=== PATIENT | female | born 1940 | race Caucasian/White ===

== ENCOUNTER 2017-10-22 08:45 | Emergency (ER) | payer MEDICARE, OTHER ==
[~2017-10-22] VITALS: Ht 160 cm; Wt 64.0 kg
[~2017-10-22 08:45] MED LIST: ALBU90OI INH; ATOR40TA PO; CELE200 PO; CETI10 PO; CHOL10002 PO; DIPASPER PO; ESTR.05TPW; FLUSAL2505 IH; FLUSAL2505 INH; GLIP10 PO; GLYB5 PO; LIRA0.6P SC; LISHYD1012 PO; LOSHYD PO; METF500 PO; METO10 PO; METO25ER PO; OMEP20ER PO; Omeprazole20 M1; Plavix75 MG PO; Robaxin-750750 MG PO; ZAFI20 PO
[2017-10-22] MEDS ORDERED: HINGED KNEE SUPPORT (09:35)
== END 2017-10-22 09:51 | disposition home or self-care (01) ==
LOC: ER 08:45
DX: M25.561 Pain in right knee (principal); Z88.5 Allergy status to narcotic agent; Z88.0 Allergy status to penicillin; Z79.899 Other long term (current) drug therapy; Z79.84 Long term (current) use of oral hypoglycemic drugs; E11.9 Type 2 diabetes mellitus without complications; J45.909 Unspecified asthma, uncomplicated; Z87.891 Personal history of nicotine dependence
CPT/HCPCS: 73564; 99283

== ENCOUNTER → 2019-06-02 | Outpatient (CLI) | payer MEDICARE, OTHER ==
[~2019-06-02] MED LIST changes: +HINGED KNEE SUPPORT
[2019-06-02 14:11] LABS: Source, Urine Clean Catch
[2019-06-02 15:48] LABS: Bilirubin, Urine Neg (Neg); Blood, Urine Neg (Neg); Glucose Qualitative, Urine 3+ (Neg); Ketones, Urine Neg (Neg); Leukocyte Esterase, Urine Neg (Neg); Nitrite, Urine Neg (Neg); Protein, Urine Neg (Neg); Urobilinogen, Urine NORM (Normal)
[2019-06-02 15:53] LABS: Appearance, Urine Clear (Clear); Color, Urine Yellow (P-Yellow)
== END | disposition home or self-care (01) ==
LOC: LAB 14:09 → LAB SHORT 14:09
PROVIDERS: Family Medicine
DX: R30.0 Dysuria (principal)
CPT/HCPCS: 81003

== ENCOUNTER → 2019-11-01 | Outpatient (CLI) | payer MEDICARE, OTHER | END | disposition home or self-care (01) | LOC: LAB 10:20 → LAB SHORT 10:20 | DX: R39.15 Urgency of urination (principal) | CPT/HCPCS: 87077; 87086; 87186 ==

== ENCOUNTER 2020-06-30 10:33 | Emergency (ER) | payer MEDICARE, OTHER ==
[~2020-06-30] VITALS: Ht 154.9 cm; Wt 51.7 kg
[~2020-06-30 10:33] MED LIST changes: -CHOL10002 PO; +VITAMIN D32000 UNI1 PO
[2020-06-30] MEDS ORDERED: CARV6.25 PO (11:40)
[2020-06-30] MEDS ORDERED: DEXL60CA3 PO (11:40)
[2020-06-30] MEDS ORDERED: ELIQUIS5 MG PO (11:41)
[2020-06-30] MEDS ORDERED: LANOXIN125 MCG PO (11:41)
[2020-06-30] MEDS ORDERED: LEVSOD25 PO (11:41)
[2020-06-30] MEDS ORDERED: OMEGA-3 FISH O1 EAC6 PO (11:42)
[2020-06-30] MEDS ORDERED: ACET500 PO (11:44)
[2020-06-30] MEDS ORDERED: ROPI1 PO (11:44)
[2020-06-30] MEDS ORDERED: Depo-Medro80 MG/1 ML IJ (11:45)
== END 2020-06-30 12:42 | disposition home or self-care (01) ==
LOC: ER 10:33
DX: Z00.00 Encounter for general adult medical examination without abnormal findings (principal); R51.9 Headache, unspecified; E11.9 Type 2 diabetes mellitus without complications; Z88.5 Allergy status to narcotic agent; Z88.0 Allergy status to penicillin; Z79.01 Long term (current) use of anticoagulants; Z79.84 Long term (current) use of oral hypoglycemic drugs; Z79.899 Other long term (current) drug therapy; Z87.891 Personal history of nicotine dependence
CPT/HCPCS: 99283

== ENCOUNTER 2021-06-03 15:59 | Observation (INO) | payer MEDICARE, OTHER ==
[~2021-06-03] VITALS: Ht 157.5 cm; Wt 47.2 kg
[~2021-06-03 15:59] MED LIST changes: +ACET500 PO; +CARV6.25 PO; +DEXL60CA3 PO; +Depo-Medro80 MG/1 ML IJ; +ELIQUIS5 MG PO; +LANOXIN125 MCG PO; +LEVSOD25 PO; +OMEGA-3 FISH O1 EAC6 PO; +ROPI1 PO
[2021-06-03 16:39] LABS: BASOPHILS ABSOLUTE AUTO 0.07 K/mm3 (0.00-0.23); BASOPHILS PERCENT AUTO 1 % (0-2); EOSINOPHILS ABSOLUTE AUTO 0.07 K/mm3 (0.00-0.68); EOSINOPHILS PERCENT AUTO 1 % (0-6); Hematocrit 33.2 % (33.0-51.0); Hemoglobin 9.6 g/dL (11.5-16.0); IMMATURE GRAN ABSOLUTE AUTO 0.08 K/mm3 (0.00-0.10); IMMATURE GRAN PERCENT AUTO 1 % (0-1); LYMPHOCYTES ABSOLUTE AUTO 1.26 K/mm3 (0.84-5.20); LYMPHOCYTES PERCENT AUTO 9 % (21-46); MONOCYTES PERCENT AUTO 7 % (4-13); Mean Corpuscular HGB 22.3 pg (26.0-34.0); Mean Corpuscular HGB Conc 28.9 g/dL (31.5-36.5); Mean Corpuscular Volume 77 fL (80-100); Mean Platelet Volume 9.7 fL (9.1-12.4); NEUTROPHILS ABSOLUTE AUTO 11.93 K/mm3 (1.96-9.15); NEUTROPHILS PERCENT AUTO 83 % (41-73); Platelet Count 219 K/mm3 (150-400); RDW Coefficient Variation 17.5 % (11.7-14.2); RDW Standard Deviation 49.2 fL (35.1-46.3); White Blood Cell Count 14.41 K/mm3 (4.00-11.30)
[2021-06-03 16:59] LABS: Alanine Aminotransfer (ALT/SGP 20 U/L (12-78); Albumin, Blood 3.3 g/dL (3.4-5.0); Albumin/Globulin Ratio 0.8 (0.8-1.8); Alk Phos 71 U/L (50-136); Anion Gap 5 mmol/L (6-16); Aspartate Aminotrans (AST/SGOT 13 U/L (12-37); Bilirubin, Total 0.4 mg/dL (0.1-1.0); Blood Urea Nitrogen 14 mg/dL (8-24); Bun/Creatinine Ratio 22.9 (12.0-20.0); CO2, Blood 27 mmol/L (21-32); Calcium, Blood 9.2 mg/dL (8.5-10.1); Chloride, Blood 101 mmol/L (98-108); Creatinine, Blood 0.61 mg/dL (0.40-1.00); Globulin, Blood 3.9 g/dL (2.2-4.0); Glomerular Filtration Rate >60 (60-); Glucose, Blood 181 mg/dL (70-99); Potassium, Blood 4.2 mmol/L (3.5-5.5); Sodium, Blood 133 mmol/L (136-145); Total Protein, Blood 7.2 g/dL (6.4-8.2)
[2021-06-03 20:20] LABS: SARS-Cov-2 (COVID-19) PCR, MMC NEGATIVE (NEGATIVE)
[2021-06-04 04:09] LABS: BASOPHILS ABSOLUTE AUTO 0.04 K/mm3 (0.00-0.23); BASOPHILS PERCENT AUTO 0 % (0-2); EOSINOPHILS ABSOLUTE AUTO 0.05 K/mm3 (0.00-0.68); EOSINOPHILS PERCENT AUTO 1 % (0-6); Hemoglobin 8.7 g/dL (11.5-16.0); IMMATURE GRAN ABSOLUTE AUTO 0.04 K/mm3 (0.00-0.10); IMMATURE GRAN PERCENT AUTO 0 % (0-1); LYMPHOCYTES ABSOLUTE AUTO 1.31 K/mm3 (0.84-5.20); LYMPHOCYTES PERCENT AUTO 13 % (21-46); MONOCYTES ABSOLUTE AUTO 1.04 K/mm3 (0.16-1.47); MONOCYTES PERCENT AUTO 10 % (4-13); Mean Corpuscular Volume 76 fL (80-100); Mean Platelet Volume 9.5 fL (9.1-12.4); NEUTROPHILS ABSOLUTE AUTO 7.56 K/mm3 (1.96-9.15); NEUTROPHILS PERCENT AUTO 75 % (41-73); Platelet Count 170 K/mm3 (150-400); RDW Standard Deviation 46.6 fL (35.1-46.3); Red Blood Cell Count 3.96 M/mm3 (3.80-5.20); White Blood Cell Count 10.04 K/mm3 (4.00-11.30)
[2021-06-04 04:40] LABS: Alanine Aminotransfer (ALT/SGP 15 U/L (12-78); Albumin, Blood 2.6 g/dL (3.4-5.0); Albumin/Globulin Ratio 0.7 (0.8-1.8); Alk Phos 63 U/L (50-136); Anion Gap 5 mmol/L (6-16); Aspartate Aminotrans (AST/SGOT 8 U/L (12-37); Bilirubin, Total 0.4 mg/dL (0.1-1.0); Blood Urea Nitrogen 12 mg/dL (8-24); Bun/Creatinine Ratio 17.8 (12.0-20.0); CO2, Blood 27 mmol/L (21-32); Calcium, Blood 8.3 mg/dL (8.5-10.1); Chloride, Blood 102 mmol/L (98-108); Creatinine, Blood 0.68 mg/dL (0.40-1.00); Globulin, Blood 3.6 g/dL (2.2-4.0); Glomerular Filtration Rate >60 (60-); Glucose, Blood 141 mg/dL (70-99); Potassium, Blood 3.9 mmol/L (3.5-5.5); Sodium, Blood 134 mmol/L (136-145); Total Protein, Blood 6.2 g/dL (6.4-8.2)
--- NOTE | 2021-06-04 04:53 | NUR ---
SHIFT SUMMARY PT NEW ADMIT THIS SHIFT. [id number]. NPO THIS AM. DISCOMFORT CONTROLLED WITH X1 ROXICODONE THIS SHIFT. NAUSEA POST ROXICODONE DECREASED WITH 4MG IV ZOFRAN X1, NO EMESIS. INDEPENDENT IN ROOM. IVF PER ORDERS. PT ORIENTED TO ROOM + CALL LIGHT USE. EDUCATED REGARDING TX + QUESTIONS ANSWERED. SCDs ON. PT CURRENTLY RESTING WELL THIS AM WITH CALL LIGHT IN REACH.
--- NOTE | 2021-06-04 13:14 | NUR ---
PT TAKEN TO HIDA SCAN.
--- NOTE | 2021-06-04 15:33 | NUR ---
PT TO DAY SURGERY.
--- NOTE | 2021-06-04 16:01 | NUR ---
PT TRANSFERED TO [facility] VIA GURNY FROM FLOOR. History, Chart, Medications and Allergies reviewed before start of procedure. Lungs clear T/O to Auscultation. Patient confirms NPO status and agrees with scheduled surgery. Pre-Op teaching done. Pt verbalizes understanding.
--- NOTE | 2021-06-04 16:58 | NUR ---
PT IN SURGERY.
--- NOTE | 2021-06-04 18:58 | NUR ---
ARRIVED FROM PACU VIA GURNE, TRANSFERRED TO BED, PT IS VERY DROWSY BUT AWAKENS EASILY, ICE CHIPS GIVEN, ABD LAP INISIONS X4 C/D/I W/ STERISTRIPS, REPORT TO RUBY COREAS.
--- NOTE | 2021-06-05 05:41 | NUR ---
POD 1 S/P LAP SANJANA. PT VSS T/O NIGHT, SATS >90% ON RA. INCISIONS CDI. PAIN MGD PER EMAR W/REP RELIEF. PT DENIED N/V, PT REP NO FLATUS YET. PT UP OOB W/MIN ASSIST, DESTINY WELL.
--- NOTE | 2021-06-05 17:48 | NUR ---
PATIENT ALERT AND ORIENTED X 3. ABLE TO MAKE NEEDS AND WANTS KNOWN. CALL LIGHT AND WATER IN EASY REACH. COMPLAINS OF PAIN IN ABDOMEN, PRN PAIN MEDICATION GIVEN WHEN NEEDED PER ORDERS WITH RELIEF OF PAIN NOTED. AMBULATED TO BATHROOM WITH MINIMAL SBA. TOLERATED WELL. WILL CONTINUE TO MONITOR.
--- NOTE | 2021-06-06 17:37 | NUR ---
PATIENT HAD A GOOD DAY TODAY. WORKED WITH THERAPY, TOLERATED WELL. PATIENT HAS BEEN DROWSY TODAY. EASILY AROUSED. ABLE TO MAKE NEEDS AND WANTS KNOWN. CALL LIGHT AND WATER IN EASY REACH. NO DRAINAGE NOTED TO LAP SITES TO ABDOMEN. WILL CONTINUE TO MONITOR.
[2021-06-07 16:37] LABS: SARS-Cov-2 (COVID-19) PCR, MMC NEGATIVE (NEGATIVE)
--- NOTE | 2021-06-07 17:58 | NUR ---
PATIENT SITTING UP IN CHAIR AT THIS TIME WITH NO SIGNS OR SYMPTOMS ACUTE DISTRESS NOTED. CALL LIGHT AND WATER IN EASY REACH. ABLE TO MAKE NEED AND WANTS KNOWN. NO COMPLAINTS AT THIS TIME. WILL CONTINUE TO MONTIOR.
--- NOTE | 2021-06-08 09:33 | NUR ---
PT ARRIVED TO FLOOR FROM ER. PT [id number]. SHE REPORTS PAIN TOLERABLE AND DENIES NAUSEA. ABLE TO STAND AND TRANSFER TO BED. AMBULATED TO BATHROOM AND VOIDED. NPO SINCE ARRIVAL TO UNIT AND EDUCATED ON IMPORTANCE OF NPO. IV FLUIDS INFUSING. PLAN IS FOR SURGERY THIS AFTERNOON.
--- NOTE | 2021-06-08 16:10 | NUR ---
DISCHARGE INSTRUCTIONS GIVEN TO PATIENT AND AT 1530. VERBALIZED UNDERSTANDING.
== END 2021-06-08 15:25 | disposition home or self-care (01) ==
LOC: ER 15:59 → SURS 16:00 → ER 20:20 → SURS 20:50
PROVIDERS: Physician Assistant; Student in an Organized Health Care Education/Training Program; Surgery; ADMIT Surgery
PROC: 0FT44ZZ Resection of Gallbladder, Percutaneous Endoscopic Approach (ICD-10-PCS; principal; 2021-06-04 13:15)
DX: K81.0 Acute cholecystitis (principal); K82.A1 Gangrene of gallbladder in cholecystitis; E11.9 Type 2 diabetes mellitus without complications; I48.0 Paroxysmal atrial fibrillation; I10 Essential (primary) hypertension; E78.5 Hyperlipidemia, unspecified; J44.9 Chronic obstructive pulmonary disease, unspecified; Z88.0 Allergy status to penicillin; Z88.5 Allergy status to narcotic agent; Z79.84 Long term (current) use of oral hypoglycemic drugs; Z87.891 Personal history of nicotine dependence; Z79.899 Other long term (current) drug therapy; Z79.01 Long term (current) use of anticoagulants; Z20.822 Contact with and (suspected) exposure to COVID-19
CPT/HCPCS: 36415; 76705; 78226; 80053; 82947; 83690; 85025; 88304; 93005; 93010; 94640; 94664; 94760; 96365; 96367; 96375; 97110; 97116; 97162; 99285-25; A9270; A9537; G0378; J0696; J1100; J1815; J1885; J2370; J2405; J2704; J2765; J3010; J7120; U0004

== ENCOUNTER → 2021-08-25 | Outpatient (CLI) | payer MEDICARE, OTHER ==
[2021-08-26 13:03] LABS: Candida species (DNA Probe) Negative (NEGATIVE); G. vaginalis (DNA Probe) Negative (NEGATIVE); T. vaginalis (DNA Probe) Negative (NEGATIVE)
== END | disposition home or self-care (01) ==
LOC: LAB SHORT 10:00
PROVIDERS: Nurse Practitioner Family
DX: R30.0 Dysuria (principal); R10.2 Pelvic and perineal pain; N89.8 Other specified noninflammatory disorders of vagina
CPT/HCPCS: 87070; 87077; 87086; 87186; 87205; 87480; 87510; 87660

== ENCOUNTER 2022-03-19 08:39 | Day surgery (SDC) | payer MEDICARE, OTHER ==
[~2022-03-19] VITALS: Ht 157.5 cm; Wt 47.9 kg
[~2022-03-19 08:39] MED LIST changes: +ATOR80; +Carvedilol12.5 MG PO; +DIGOX125 MC1 PO; +ELIQUIS5 M2 PO; +LEVOTHYROXINE PO; +LOSA50 PO; +MONT10T PO; +TRAZ50 PO
[2022-03-19] MEDS ORDERED: HYDCHL25 PO (09:08)
[2022-03-19] MEDS ORDERED: AMARYL4 M1 PO (09:09)
[2022-03-19] MEDS ORDERED: ALBU90OI INH (09:11)
[2022-03-19] MEDS ORDERED: ACET500 PO (09:13)
--- NOTE | 2022-03-19 09:43 | NUR ---
Ambulatory in Day Surgery History, Chart, Medications and Allergies reviewed before start of procedure. Lungs clear T/O to Auscultation, but SOB with exertion. Patient confirms NPO status and agrees with scheduled surgery. Pre-Op teaching done. Pt verbalizes understanding. Patient States Post-Procedure ride home has been arranged.
[2022-03-19 09:51] LABS: BASOPHILS ABSOLUTE AUTO 0.09 K/mm3 (0.00-0.23); BASOPHILS PERCENT AUTO 2 % (0-2); EOSINOPHILS ABSOLUTE AUTO 0.08 K/mm3 (0.00-0.68); EOSINOPHILS PERCENT AUTO 1 % (0-6); Hematocrit 25.1 % (33.0-51.0); Hemoglobin 6.2 g/dL (11.5-16.0); IMMATURE GRAN ABSOLUTE AUTO 0.03 K/mm3 (0.00-0.10); IMMATURE GRAN PERCENT AUTO 1 % (0-1); LYMPHOCYTES PERCENT AUTO 17 % (21-46); MONOCYTES PERCENT AUTO 14 % (4-13); Mean Corpuscular HGB 17.9 pg (26.0-34.0); Mean Corpuscular HGB Conc 24.7 g/dL (31.5-36.5); Mean Corpuscular Volume 72 fL (80-100); Mean Platelet Volume 9.1 fL (9.1-12.4); NEUTROPHILS ABSOLUTE AUTO 3.82 K/mm3 (1.96-9.15); NEUTROPHILS PERCENT AUTO 66 % (41-73); Platelet Count 483 K/mm3 (150-400); RDW Coefficient Variation 19.9 % (11.7-14.2); RDW Standard Deviation 51.6 fL (35.1-46.3); Red Blood Cell Count 3.47 M/mm3 (3.80-5.20); White Blood Cell Count 5.82 K/mm3 (4.00-11.30)
--- NOTE | 2022-03-19 09:56 | NUR ---
03/19/22 0956 Janae Herbert HISTORY,CHART, MEDICATIONS AND ALLERGIES REVIEWED BEFORE START OF PROCEDURE. PATIENT CONFIRMS NPO STATUS AND AGREES WITH SCHEDULED PROCEDURE. 3-LEAD EKG REVIEWED WITH PHYSICIAN PRIOR TO START OF PROCEDURE. MONITOR INTACT WITH CONTINUOUS PULSE OXIMETRY, 3-LEAD EKG, CAPNOGRAPHY AND INTERMITTENT BP. SUPPLEMENTAL O2 TO BE TITRATED THROUGHOUT PROCEDURE TO MAINTAIN O2 SATURATION ABOVE 90%. PATIENT DETERMINED TO BE ASA APPROPRIATE FOR MODERATE SEDATION PRIOR TO START OF PROCEDURE BY DR. TORRES
--- NOTE | 2022-03-19 13:29 | NUR ---
1200 PT WAS VERY SLEEPY, SLOWLY WAKING NOW. EKG ORDERED. 1230 PT EATING AND DESTINY PO. ALL VSS STABLE. CONTINUE MONITORING OXYGEN LEVEL PT IS ON 2 L N/C 1315 AMBULATE TO BR VOIDED WITHOUT DIFFICULTY. CALL TO [facility] OFFICE TO SCHEDULE F/U APPT SOON POSSIBLE
[2022-03-19] MEDS ORDERED: FLUT1DIS5 INH (14:24)
== END 2022-03-19 22:43 | disposition home or self-care (01) ==
LOC: ORSCMMR 08:39 → ORD 09:30 → ORSCMMR 22:43
PROVIDERS: Internal Medicine Gastroenterology
DX: D50.9 Iron deficiency anemia, unspecified (principal); D12.3 Benign neoplasm of transverse colon; K29.70 Gastritis, unspecified, without bleeding; Z86.010 Personal history of colon polyps; K57.30 Diverticulosis of large intestine without perforation or abscess without bleeding; Z79.01 Long term (current) use of anticoagulants; E78.00 Pure hypercholesterolemia, unspecified; E11.43 Type 2 diabetes mellitus with diabetic autonomic (poly)neuropathy; K31.84 Gastroparesis; Z79.84 Long term (current) use of oral hypoglycemic drugs; Z79.899 Other long term (current) drug therapy; I69.354 Hemiplegia and hemiparesis following cerebral infarction affecting left non-dominant side; J44.9 Chronic obstructive pulmonary disease, unspecified; I10 Essential (primary) hypertension; E03.9 Hypothyroidism, unspecified; I48.0 Paroxysmal atrial fibrillation
CPT/HCPCS: 82947; 85025; 88305; 88342; 93005; 93010; A9270; J2250; J3010; J7120

== ENCOUNTER 2022-08-12 09:55 | Inpatient (IN) | payer MEDICARE, OTHER ==
[~2022-08-12] VITALS: Ht 157.5 cm; Wt 51.9 kg
[~2022-08-12 09:55] MED LIST changes: +AMARYL4 M1 PO; -ATOR80; +ATOR80 PO; +FLUT1DIS5 INH; +HYDCHL25 PO
[2022-08-12 10:46] LABS: BASOPHILS ABSOLUTE AUTO 0.06 K/mm3 (0.00-0.23); BASOPHILS PERCENT AUTO 0 % (0-2); EOSINOPHILS ABSOLUTE AUTO 0.12 K/mm3 (0.00-0.68); EOSINOPHILS PERCENT AUTO 1 % (0-6); Hematocrit 37.8 % (33.0-51.0); IMMATURE GRAN ABSOLUTE AUTO 0.08 K/mm3 (0.00-0.10); IMMATURE GRAN PERCENT AUTO 1 % (0-1); LYMPHOCYTES ABSOLUTE AUTO 0.87 K/mm3 (0.84-5.20); LYMPHOCYTES PERCENT AUTO 5 % (21-46); MONOCYTES ABSOLUTE AUTO 0.82 K/mm3 (0.16-1.47); MONOCYTES PERCENT AUTO 5 % (4-13); Mean Corpuscular HGB 24.3 pg (26.0-34.0); Mean Corpuscular HGB Conc 29.1 g/dL (31.5-36.5); Mean Corpuscular Volume 84 fL (80-100); Mean Platelet Volume 9.8 fL (9.1-12.4); NEUTROPHILS ABSOLUTE AUTO 14.03 K/mm3 (1.96-9.15); NEUTROPHILS PERCENT AUTO 88 % (41-73); Platelet Count 210 K/mm3 (150-400); RDW Coefficient Variation 19.5 % (11.7-14.2); RDW Standard Deviation 59.6 fL (35.1-46.3); Red Blood Cell Count 4.52 M/mm3 (3.80-5.20); White Blood Cell Count 15.98 K/mm3 (4.00-11.30)
[2022-08-12 11:21] LABS: Albumin, Blood 3.3 g/dL (3.4-5.0); Bilirubin, Total 0.6 mg/dL (0.1-1.0); Bun/Creatinine Ratio 31.6 (12.0-20.0); Calcium, Blood 8.9 mg/dL (8.5-10.1); Creatinine, Blood 0.57 mg/dL (0.40-1.00); Globulin, Blood 3.4 g/dL (2.2-4.0); Potassium, Blood 4.5 mmol/L (3.5-5.5); Total Protein, Blood 6.7 g/dL (6.4-8.2)
[2022-08-12 11:47] LABS: Digoxin (Lanoxin) 1.07 ug/mL (0.80-2.00)
[2022-08-12 12:31] LABS: Influenza A, PCR NEGATIVE (NEGATIVE); Influenza B, PCR NEGATIVE (NEGATIVE); Resp Syncytial Virus, PCR NEGATIVE (NEGATIVE); SARS-Cov-2 (COVID-19) PCR, MMC NEGATIVE (NEGATIVE)
[2022-08-13 05:54] LABS: Hematocrit 36.2 % (33.0-51.0); Hemoglobin 10.5 g/dL (11.5-16.0); Mean Corpuscular Volume 83 fL (80-100); Mean Platelet Volume 10.5 fL (9.1-12.4); Platelet Count 237 K/mm3 (150-400); RDW Coefficient Variation 19.5 % (11.7-14.2); Red Blood Cell Count 4.38 M/mm3 (3.80-5.20); White Blood Cell Count 23.36 K/mm3 (4.00-11.30)
[2022-08-13 06:27] LABS: Bun/Creatinine Ratio 35.6 (12.0-20.0); Calcium, Blood 9.6 mg/dL (8.5-10.1); Creatinine, Blood 0.53 mg/dL (0.40-1.00); Percent Saturation 4.4 % (15.0-50.0); Potassium, Blood 3.8 mmol/L (3.5-5.5)
[2022-08-15] MEDS ORDERED: MIRALAX17 GM PO (14:50)
[2022-08-15] MEDS ORDERED: Prednisone10 MG PO (14:51)
[2022-08-15] MEDS ORDERED: ASCO500 PO (14:52)
[2022-08-15] MEDS ORDERED: VITAMIN D5000 UNIT PO (14:52)
[2022-08-15] MEDS ORDERED: AZIT500 PO (14:52)
[2022-08-15] MEDS ORDERED: CEFD300 PO (14:53)
[2022-08-15] MEDS ORDERED: FERSU300 PO (14:53)
== END 2022-08-15 17:33 | disposition home health service (06) | DRG 189 ==
LOC: ER 09:55 → MEDS 13:26 → PCU 14:49 → MEDS 08-13 00:52
PROVIDERS: Emergency Medicine; Physician Assistant; ADMIT Internal Medicine
DX: J96.01 Acute respiratory failure with hypoxia (principal); G92.8 Other toxic encephalopathy; J44.1 Chronic obstructive pulmonary disease with (acute) exacerbation; I48.0 Paroxysmal atrial fibrillation; D50.8 Other iron deficiency anemias; G47.30 Sleep apnea, unspecified; E78.00 Pure hypercholesterolemia, unspecified; M19.90 Unspecified osteoarthritis, unspecified site; E11.43 Type 2 diabetes mellitus with diabetic autonomic (poly)neuropathy; K31.84 Gastroparesis; Z20.822 Contact with and (suspected) exposure to COVID-19; Z88.8 Allergy status to other drugs, medicaments and biological substances; Z88.5 Allergy status to narcotic agent; Z88.0 Allergy status to penicillin; Z88.1 Allergy status to other antibiotic agents; Z79.899 Other long term (current) drug therapy; Z79.52 Long term (current) use of systemic steroids; Z79.84 Long term (current) use of oral hypoglycemic drugs; Z79.02 Long term (current) use of antithrombotics/antiplatelets; Z79.01 Long term (current) use of anticoagulants; Z79.51 Long term (current) use of inhaled steroids; Z86.73 Personal history of transient ischemic attack (TIA), and cerebral infarction without residual deficits; Z90.710 Acquired absence of both cervix and uterus; Z87.891 Personal history of nicotine dependence; Z98.890 Other specified postprocedural states; Z86.19 Personal history of other infectious and parasitic diseases; Z90.49 Acquired absence of other specified parts of digestive tract; Z90.721 Acquired absence of ovaries, unilateral; Z99.81 Dependence on supplemental oxygen
CPT/HCPCS: 0241U; 36415; 70450; 71045; 80048; 80053; 80162; 82728; 82947; 83540; 83550; 84145; 85025; 85027; 93005; 93010; 94640; 94644; 94664; 94761; 94762; A9270; J0456; J0696; J1815; J2930; J7050; J7512

== ENCOUNTER 2022-08-20 21:23 | Emergency (ER) | payer MEDICARE, OTHER ==
[~2022-08-20] VITALS: Ht 154.9 cm; Wt 54.4 kg
[~2022-08-20 21:23] MED LIST changes: +ASCO500 PO; +AZIT500 PO; +CEFD300 PO; +FERSU300 PO; +MIRALAX17 GM PO; +Prednisone10 MG PO; +VITAMIN D5000 UNIT PO
== END 2022-08-20 23:20 | disposition home or self-care (01) ==
LOC: ER 21:23
DX: R51.9 Headache, unspecified (principal); M54.2 Cervicalgia; M54.9 Dorsalgia, unspecified; E11.9 Type 2 diabetes mellitus without complications; J44.9 Chronic obstructive pulmonary disease, unspecified; Z79.52 Long term (current) use of systemic steroids; Z79.899 Other long term (current) drug therapy; Z79.84 Long term (current) use of oral hypoglycemic drugs; W54.1XXA Struck by dog, initial encounter; Z88.0 Allergy status to penicillin; Z88.5 Allergy status to narcotic agent; Z88.8 Allergy status to other drugs, medicaments and biological substances; Z79.890 Hormone replacement therapy; Z86.73 Personal history of transient ischemic attack (TIA), and cerebral infarction without residual deficits; Z87.891 Personal history of nicotine dependence
CPT/HCPCS: 70450; 72125; 72128; 93005; 93010

== ENCOUNTER 2022-12-08 20:48 | Emergency (ER) | payer MEDICARE, OTHER ==
[~2022-12-08] VITALS: Ht 157.5 cm; Wt 48.5 kg
[~2022-12-08 20:48] MED LIST changes: +SPIRIVA RESPIMAT4 G3 INH; +VICTOZA 2-0.6 MG/0.1 SC
== END 2022-12-09 00:26 | disposition home or self-care (01) ==
LOC: ER 20:48
DX: S00.03XA Contusion of scalp, initial encounter (principal); W18.39XA Other fall on same level, initial encounter; E11.9 Type 2 diabetes mellitus without complications; J45.909 Unspecified asthma, uncomplicated; Z87.891 Personal history of nicotine dependence; Z88.5 Allergy status to narcotic agent; Z88.0 Allergy status to penicillin; Z88.1 Allergy status to other antibiotic agents; Z88.8 Allergy status to other drugs, medicaments and biological substances; Z79.899 Other long term (current) drug therapy; Z79.84 Long term (current) use of oral hypoglycemic drugs
CPT/HCPCS: 70450; 90714; J1885

== ENCOUNTER → 2022-12-26 | Outpatient (CLI) | payer MEDICARE, OTHER ==
[~2022-12-26] MED LIST changes: +BENZ100A PO; +CEPH500 PO
== END | disposition home or self-care (01) ==
LOC: LAB 11:48 → LAB SHORT 11:48
DX: R82.90 Unspecified abnormal findings in urine (principal)
CPT/HCPCS: 87086